=== PATIENT | female | born 1975 | race American Indian/Alaskan Native ===

== ENCOUNTER 2016-11-30 12:28 | Emergency (ER) | payer SELFPAY ==
[2016-11-30 12:47] VITALS: BP 139/95
--- NOTE | 2016-11-30 13:46 | Emergency Department Report ---
Entered by SANG BARAJAS, acting as scribe for DAVIAN ONEIL PA. Chief Complaint: Chest Pain Stated Complaint: CHEST PAIN /HEADACHE /COUGHING /SOB/BACK PAIN/ - HPI History of Present Illness: 41 y/o female presents c/o SOB that started last night. Associated Sx include chronic back and chest pain that she states have been present forever, dizziness, but pt denies fever, N/V and abd pain. No additional Sx - ROS Review of Systems: as noted in HPI. - Exam Vital Signs: Vital Signs 11/30/16 12:42 Temperature 98 F Pulse Rate 81 Respiratory 20 Rate Blood Pressure 139/95 O2 Sat by Pulse 99 Oximetry Physical Exam: General: 41-year-old female in no acute distress. Well-developed, well- nourished. CV: Regular rate and rhythm. No murmurs rubs or gallops. Lungs: Clear to auscultation bilaterally. Abdomen: No tenderness to palpation. No guarding or rebound tenderness. Normal bowel sounds. Mini Neuro: Alert and oriented 3. MSE screening note: Focused history and physical exam performed. Due to findings the following was ordered: ED Disposition for MSE Condition: Stable This documentation as recorded by the scribeKARL RYAN,accurately reflects the service I personally performed and the decisions made by ,DAVIAN ONEIL PA.
--- NOTE | 2016-12-02 14:27 | ED Elopement Review ---
ED Pt Elopement review - Call Back decision Pt Call Back Decision: No action required
== END 2016-11-30 18:35 | disposition left against medical advice (07) ==
LOC: ED 12:28
DX: R07.9 Chest pain, unspecified (principal); R51 Headache; R06.02 Shortness of breath; Z53.21 Procedure and treatment not carried out due to patient leaving prior to being seen by health care provider
CPT/HCPCS: 93005; 93010

== ENCOUNTER 2019-06-14 19:17 | Emergency (ER) | payer SELFPAY ==
--- NOTE | 2019-06-14 19:56 | Emergency Department Report ---
Blank Doc - Documentation Documentation: 43-year-old female that presents with URI symptoms. This initial assessment/diagnostic orders/clinical plan/treatment(s) is/are subject to change based on patient's health status, clinical progression and re- assessment by fellow clinical providers in the ED. Further treatment and workup at subsequent clinical providers discretion. Patient/guardians urged not to elope from the ED as their condition may be serious if not clinically assessed and managed. Initial orders include: 1- Patient sent to [facility] for further evaluation and treatment 2- CXR
--- NOTE | 2019-06-14 21:47 | XRay Report ---
CHEST PA AND LATERAL VIEWS INDICATION: cough. COMPARISON: None FINDINGS: Support devices: None Heart: Normal Lungs/Pleura: No acute pulmonary or pleural findings. IMPRESSION: 1. No significant abnormality. Signer Name: Cm Shen MD Signed: 06/14/2019 9:42 PM Workstation Name: [id number]
[2019-06-14 23:03] VITALS: BP 117/74
--- NOTE | 2019-06-14 23:16 | Emergency Department Report ---
- General Chief Complaint: Upper Respiratory Infection Stated Complaint: SINUS,TREVIZO Time Seen by Provider: 06/14/19 19:55 Source: patient Mode of arrival: Ambulatory Limitations: No Limitations - History of Present Illness MD Complaint: cough, rhinorrhea, nasal congestion, sinus pain -: Gradual, days(s) (5) Quality: dull, aching Consistency: constant Improves With: nothing Associated Symptoms: headache, rhinorrhea, nasal congestion, cough, nausea. denies: myalgias, confusion, right sweats, weight loss - Related Data Previous Rx's Medication Instructions Recorded Last Taken Type Multivitamin/Iron/Folic Acid 1 each PO QDAY #30 tablet 12/30/14 Unknown Rx [Multi-Day Plus Iron Tablet] medroxyPROGESTERone ACETATE 5 mg PO QDAY #5 tablet 12/30/14 Unknown Rx [Provera] Allergies Allergy/AdvReac Type Severity Reaction Status Date / Time No Known Allergies Allergy Unverified 12/30/14 10:14 ED Review of Systems ROS: Stated complaint: SINUS,TREVIZO Other details as noted in HPI Comment: All other systems reviewed and negative ED Past Medical Hx - Past Medical History Hx Hypertension: Yes (no meds) - Surgical History Additional Surgical History: , Cyst removed from right ovary - Social History Smoking Status: Never Smoker Substance Use Type: None - Medications Home Medications: Home Medications Medication Instructions Recorded Confirmed Last Taken Type Multivitamin/Iron/Folic Acid 1 each PO QDAY #30 tablet 12/30/14 Unknown Rx [Multi-Day Plus Iron Tablet] medroxyPROGESTERone ACETATE 5 mg PO QDAY #5 tablet 12/30/14 Unknown Rx [Provera] ED Physical Exam - General Limitations: No Limitations General appearance: alert, in no apparent distress - Head Head exam: Present: atraumatic, normocephalic - Eye Eye exam: Present: normal appearance - ENT ENT exam: Present: mucous membranes moist, other (nasal congestion bilaterally with some clear drainage. Posterior pharynx is clear) - Neck Neck exam: Present: normal inspection - Respiratory Respiratory exam: Present: normal lung sounds bilaterally, rhonchi. Absent: respiratory distress - Cardiovascular Cardiovascular Exam: Present: regular rate, normal rhythm. Absent: systolic murmur, diastolic murmur, rubs, gallop - GI/Abdominal GI/Abdominal exam: Present: soft, normal bowel sounds - Extremities Exam Extremities exam: Present: normal inspection - Back Exam Back exam: Present: normal inspection - Neurological Exam Neurological exam: Present: alert, oriented X3 - Psychiatric Psychiatric exam: Present: normal affect, normal mood - Skin Skin exam: Present: warm, dry, intact, normal color. Absent: rash ED Course Vital Signs 06/14/19 06/14/19 06/14/19 19:28 19:55 23:02 Temperature 98.5 F 98.5 F 98.3 F Pulse Rate 87 94 H 86 Respiratory 16 18 19 Rate Blood Pressure 108/62 Blood Pressure 98/64 117/74 [Right] O2 Sat by Pulse 99 96 100 Oximetry Critical care attestation.: If time is entered above; I have spent that time in minutes in the direct care of this critically ill patient, excluding procedure time. ED Disposition Clinical Impression: Cough, Bronchitis Disposition: DC-01 TO HOME OR SELFCARE Is pt being admited?: No Does the pt Need Aspirin: No Condition: Stable Instructions: Chronic Bronchitis (ED), Acute Bronchitis (ED), Cold Symptoms (ED), Upper Respiratory Infection (ED) Referrals: [facility] [Provider Group] - 2-3 Days
== END 2019-06-14 23:30 | disposition home or self-care (01) ==
LOC: ED 19:17
DX: J40 Bronchitis, not specified as acute or chronic (principal); I10 Essential (primary) hypertension; Z79.899 Other long term (current) drug therapy
CPT/HCPCS: 71046; 99283

== ENCOUNTER 2022-02-10 23:19 | Emergency (ER) | payer SELFPAY | END 2022-02-11 02:46 | disposition left against medical advice (07) | LOC: ED 23:19 | DX: M54.9 Dorsalgia, unspecified (principal); Z53.21 Procedure and treatment not carried out due to patient leaving prior to being seen by health care provider ==